=== PATIENT | female | born 1950 | race Caucasian/White ===

== ENCOUNTER 2018-06-07 03:46 | Emergency (ER) | payer OTHER ==
[2018-06-07 04:02] VITALS: BP 150/86; PULSE 98; TEMP 98.6; BMI 24.7
--- NOTE | 2018-06-07 04:32 | PDOC ---
Attending Attestation - Resident Resident Name: Terry Ramirez - ED Attending Attestation I have performed the following: I have examined & evaluated the patient, The case was reviewed & discussed with the resident, I agree w/resident's findings & plan, Exceptions are as noted - HPI HPI: 06/07/18 05:22 Ms Swanson is a 67 yo F who presents to the ER with a complaint of hematuria and dysuria Symptoms began this evening No associated fever or chills No nausea, vomiting, diarrhea She was concerned because she noted blood in the toilet bowl and also when she wiped herself after urinating No hematemesis, no rectal bleeding 06/07/18 05:23 - Physicial Exam PE: 06/07/18 05:17 Pt is awake and alert Answers all questions appropriately RRR CTA No abdominal tenderness to palpation, no pulsatile mass No CVA tenderness 06/07/18 05:33 - Medical Decision Making 06/07/18 05:34 Laboratory Tests 06/07/18 04:30 Urine Blood 3+ H Ur Leukocyte Esterase 2+ H Urine WBC (Auto) 66 Ur Epithelial Cells Rare Urine Bacteria Few Urine Mucus Rare Appears to by a UTI No flank pain to suggest pyelonpehritis or renal colic No rash No abdominal pain to suggest aortic aneurysm Pt was concerned about having appendicitis but demonstrates no RLQ tenderness Clinical Impression: UTI, initial presentation
[2018-06-07 04:39] LABS: URINE APPEARANCE CLEAR; URINE BILIRUBIN NEGATIVE (<2.0 mg/dL); URINE COLOR LTYELLOW; URINE GLUCOSE (UA) 1+ (NEGATIVE); URINE KETONE NEGATIVE (NEGATIVE); URINE NITRITE NEGATIVE (NEGATIVE); URINE UROBILINOGEN NEGATIVE mg/dL (0.2-1.0)
[2018-06-07 04:44] LABS: URINE LEUK ESTERASE 2+ (NEGATIVE); URINE PROTEIN 1+ (NEGATIVE)
[2018-06-07 04:45] LABS: EPI CELLS RARE /HPF (FEW); URINE BACTERIA FEW /hpf (NONE SEEN); URINE MUCUS RARE
--- NOTE | 2018-06-07 05:15 | PDOC ---
History of Present Illness - General Chief Complaint: Urinary Problem Stated Complaint: URINARY PROBLEM Time Seen by Provider: 06/07/18 03:59 History Source: Patient, Old Records Exam Limitations: Language Barrier (Pt is Armenian speaking only. Utilized telephone print room worker.) - History of Present Illness Initial Comments: 67 y/o female presenting to [facility] ER via ambulance from home complaining of dysuria, urgency, frequency, and hematuria since last evening. Endorses subjective fever without chills or diaphoresis. Denies nausea, vomiting, diarrhea, or constipation. No abdominal pain, flank pain, or vaginal discharge. PCP: Dr. Geo Sánchez Medical Hx: HTN DM Gastritis Surgical Hx: Total hysterectomy Cataracts Past History - Past Medical History Allergies/Adverse Reactions: Allergies Allergy/AdvReac Type Severity Reaction Status Date / Time No Known Allergies Allergy Verified 06/07/18 03:58 Home Medications: Ambulatory Orders Omeprazole 40 mg PO DAILY 06/27/13 metFORMIN HCL [Glucophage] 500 mg PO BID 06/27/13 Acetaminophen [Tylenol] 650 mg PO Q4H PRN #20 tablet 09/23/16 Albuterol Sulfate Inhaler - [Ventolin HFA Inhaler -] 1 - 2 inh PO Q4H PRN #1 inhaler 09/23/16 Azithromycin 250 mg PO DAILY #4 tablet 09/23/16 Lisinopril [Prinivil] 10 mg PO DAILY 09/23/16 Cephalexin Monohydrate [Keflex -] 500 mg PO BID #7 capsule 06/07/18 Phenazopyridine HCl [Pyridium -] 200 mg PO TID 2 Days #6 tablet 06/07/18 Anemia: Yes Cancer: Yes (UTERINE) COPD: No Diabetes: Yes HTN: Yes Hypercholesterolemia: Yes - Suicide/Smoking/Psychosocial Hx Smoking Status: No Smoking History: Never smoked Have you smoked in the past 12 months: No Information on smoking cessation initiated: No Hx Alcohol Use: No Drug/Substance Use Hx: No Substance Use Type: None Review of Systems - Review of Systems Able to Perform ROS?: Yes Is the patient limited South Korean proficient: Yes Constitutional: Yes: Fever. No: Chills, Diaphoresis Respiratory: No: Shortness of Breath Cardiac (ROS): No: Chest Pain ABD/GI: No: Constipated, Diarrhea, Nausea, Vomiting : Yes: Dysuria, Frequency, Hematuria, Pain, Urgency. No: Discharge, Flank Pain Musculoskeletal: No: Back Pain Integumentary: No: Bruising, Rash Neurological: No: Weakness Hematologic/Lymphatic: No: Easy Bleeding, Easy Bruising *Physical Exam - Vital Signs Last Vital Signs Temp Pulse Resp BP Pulse Ox 98.6 F 98 H 20 150/86 100 06/07/18 03:59 06/07/18 03:59 06/07/18 03:59 06/07/18 03:59 06/07/18 03:59 - Physical Exam Comments: Constitutional: Well-developed, well-nourished female in no acute distress but mild discomfort. Found semi-fowlers in hospital bed. Alert and oriented x4. Answered all questions appropriately and completely. Speech was non-labored, non -pressured. Armenian speaking only. HEENT: Normocephalic. No obvious external signs of trauma. Hearing grossly normal. No nasal discharge. Neck is supple, trachea is midline. Cardiovascular: Regular rate and regular rhythm. No murmur, rubs, clicks, or gallops. Peripheral pulses: Radial pulses full. Respiratory: Breathing unlabored. Equal chest rise and fall. Clear to auscultation bilaterally. No stridor, no wheezing, no rhonchi. Gastrointestinal: abdomen is soft, non-tender, non-distended. Neuro: Alert and oriented. Moving all four extremities spontaneously. Skin: Warm, dry, and intact. No bruising, rashes, or other lesions. : No R or L CVA tenderness. Psych: Affect: appropriate. Mood: normal. ED Treatment Course - ADDITIONAL ORDERS Additional order review: Laboratory Results 06/07/18 04:30 Urine Color Ltyellow Urine Appearance Clear Urine pH 5.0 Ur Specific [place] 1.003 Urine Protein 1+ H Urine Glucose (UA) 1+ H D Urine Ketones Negative Urine Blood 3+ H Urine Nitrite Negative Urine Bilirubin Negative Urine Urobilinogen Negative Ur Leukocyte Esterase 2+ H Urine WBC (Auto) 66 Urine RBC (Auto) 2 Ur Epithelial Cells Rare Urine Bacteria Few Urine Mucus Rare Medical Decision Making - Medical Decision Making *Reviewed vital signs, nursing notes, and prior visit documentation (if available). 67 y/o female complaining of dysuria, urgency, frequency, and hematuria since last evening. Denies h/o recurrent UTI. Afebrile. Triage vitals remarkable for hypertension and borderline tachycardia, pt not tachycardic on my exam. H/o hypertension. Benign physical exam. Suspect UTI versus nephrolithiasis. Low suspicion for pyelonephritis, appendicitis, diverticulitis, or obstruction. Will obtain UA and urine culture. UA revealed pyuria, leukocyte esterase, and hematuria. Suspect uncomplicated UTI. Also noted glycosuria, suspect secondary to pts DM diagnosis. Ordered first dose of Keflex and Pyridium. Discharged home with seven day course of Keflex and two day course of pyridium. Instructed to follow up with PCP. *DC/Admit/Observation/Transfer Diagnosis at time of Disposition: UTI (urinary tract infection) with pyuria - Discharge Dispostion Disposition: HOME Condition at time of disposition: Good Decision to Admit order: No - Prescriptions Prescriptions: Cephalexin Monohydrate [Keflex -] 500 mg PO BID #7 capsule Phenazopyridine HCl [Pyridium -] 200 mg PO TID 2 Days #6 tablet - Referrals Referrals: Geo Sánchez MD [Primary Care Provider] - - Patient Instructions Printed Discharge Instructions: DI for Urinary Tract Infection (UTI) Additional Instructions: Tu orina muestra signos de teresa infeccin hoy. Esta es probablemente la causa de stokes incomodidad. He enviado teresa receta para Keflex, un antibitico, y Pyridium, un medicamento para el dolor, a [facility]. [place] katie se indica en el paquete. Mary Beth un seguimiento con stokes mdico de atencin primaria dentro de los prximos 3- 4 monahan. Tendr que llamar para hacer teresa erika. El nmero est incluido en sheldon paquete. Dirjase al servicio de urgencias ms cercano si stokes afeccin empeora o si bharat que necesita teresa evaluacin de emergencia adicional. Print Language: SERBIAN - Post Discharge Activity
[2018-06-07] MEDS ORDERED: CEPHALEXIN MONOHYDRATE 500 MG CAPSULE (UD) PO ONE (05:33)
[2018-06-07] MEDS ORDERED: PHENAZOPYRIDINE HCL 100 MG TABLET (FP) PO ONE (05:33)
[2018-06-07] MEDS ORDERED: PHENAZOPYRIDINE HCL 100 MG TABLET (FP) ONE (05:38)
[2018-06-07] MEDS ORDERED: CEPHALEXIN MONOHYDRATE 500 MG CAPSULE (UD) ONE (05:38)
== END 2018-06-07 05:55 | disposition home or self-care (01) ==
LOC: JER 03:46
DX: N39.0 Urinary tract infection, site not specified (principal); R31.9 Hematuria, unspecified; I10 Essential (primary) hypertension; E11.9 Type 2 diabetes mellitus without complications; Z79.84 Long term (current) use of oral hypoglycemic drugs; E78.00 Pure hypercholesterolemia, unspecified; Z85.42 Personal history of malignant neoplasm of other parts of uterus; Z86.2 Personal history of diseases of the blood and blood-forming organs and certain disorders involving the immune mechanism
CPT/HCPCS: 81003; 81015; 87086; 87186; 99281-25

== ENCOUNTER 2019-05-11 11:58 | Emergency (ER) | payer OTHER | END 2019-05-11 13:05 | disposition home or self-care (01) | LOC: JER 11:58 → JERFT 13:05 ==

== ENCOUNTER 2019-08-19 13:03 | Emergency (ER) | payer OTHER ==
[2019-08-19 13:08] VITALS: BP 157/72; PULSE 100; TEMP 98.4; BMI 24.4
[2019-08-19] MEDS ORDERED: ACETAMINOPHEN 325 MG TABLET (FP) PO ONE (15:08)
--- NOTE | 2019-08-19 15:08 | PDOC ---
History of Present Illness - General Chief Complaint: Cold Symptoms Stated Complaint: COUGH Time Seen by Provider: 08/19/19 13:29 Past History - Travel Traveled outside of the country in the last 30 days: No Close contact w/someone who was outside of country & ill: No - Past Medical History Allergies/Adverse Reactions: Allergies Allergy/AdvReac Type Severity Reaction Status Date / Time No Known Allergies Allergy Verified 08/19/19 13:08 Home Medications: Ambulatory Orders Omeprazole 40 mg PO DAILY 06/27/13 metFORMIN HCL [Glucophage] 500 mg PO BID 06/27/13 Albuterol Sulfate Inhaler - [Ventolin HFA Inhaler -] 1 - 2 inh PO Q4H PRN #1 inhaler 09/23/16 Lisinopril [Prinivil] 10 mg PO DAILY 09/23/16 Cephalexin Monohydrate [Keflex -] 500 mg PO BID #7 capsule 06/07/18 Phenazopyridine HCl [Pyridium -] 200 mg PO TID 2 Days #6 tablet 06/07/18 Phenazopyridine HCl [Pyridium] 200 mg PO TID #6 tablet 05/11/19 Sulfamethoxazole/Trimethoprim [Bactrim Ds -] 1 tab PO BID #14 tablet 05/11/19 Albuterol Sulfate Inhaler - [Ventolin HFA Inhaler -] 1 - 2 inh PO Q4H #1 inhaler 08/19/19 predniSONE [Deltasone -] 40 mg PO DAILY #8 tablet 08/19/19 Anemia: Yes Cancer: Yes (UTERINE) COPD: No Diabetes: Yes HTN: Yes Hypercholesterolemia: Yes - Immunization History Immunization Up to Date: Yes - Psycho Social/Smoking Cessation Hx Smoking Status: No Smoking History: Never smoked Have you smoked in the past 12 months: No Hx Alcohol Use: No Drug/Substance Use Hx: No Substance Use Type: None Review of Systems - Review of Systems Able to Perform ROS?: Yes Comments:: 08/19/19 17:07 CONSTITUTIONAL: Absent: fever, chills, diaphoresis, generalized weakness, malaise, loss of appetite HEENT: Present: Rhinorrhea, nasal congestion, throat pain absent: rhinorrhea, nasal congestion, throat pain, throat swelling, difficulty swallowing, mouth swelling , ear pain, eye pain, visual Changes CARDIOVASCULAR: Absent: chest pain, loss of consciousness, palpitations, irregular heart rate, peripheral edema RESPIRATORY: Present: Cough, chest tightness. Absent: cough, shortness of breath, dyspnea with exertion, orthopnea, wheezing, stridor, hemoptysis GASTROINTESTINAL: Absent: abdominal pain, abdominal distension, nausea, vomiting, diarrhea, constipation, melena, hematochezia GENITOURINARY: Absent: dysuria, frequency, urgency, hesitancy, hematuria, flank pain, genital pain MUSCULOSKELETAL: Absent: myalgia, arthralgia, joint swelling SKIN: Absent: rash, itching, pallor NEUROLOGIC: Absent: headache, focal weakness or paresthesias, dizziness, unsteady gait, seizure, mental status changes, bladder or bowel incontinence PSYCHIATRIC: Absent: anxiety, depression, suicidal or homicidal ideation, hallucinations. Is the patient limited Czech proficient: No *Physical Exam - Vital Signs Last Vital Signs Temp Pulse Resp BP Pulse Ox 98.4 F 100 H 18 157/72 98 08/19/19 13:05 08/19/19 13:05 08/19/19 13:05 08/19/19 13:05 08/19/19 13:05 - Physical Exam Comments: 08/19/19 17:09 GENERAL: Well developed, well nourished. Awake and alert. No acute distress. HEENT: Normocephalic, atraumatic. PERRLA, EOMI. No conjunctival pallor. Sclera are non- icteric. Moist mucous membranes. Oropharynx is clear. NECK: Supple. Full ROM. No JVD. Carotid pulses 2+ and symmetric, without bruits. No thyromegaly. No lymphadenopathy. CARDIOVASCULAR: Regular rate and rhythm. No murmurs, rubs, or gallops. Distal pulses are 2+ and symmetric. PULMONARY: No evidence of respiratory distress. Lungs clear to auscultation bilaterally. No wheezing, rales or rhonchi. ABDOMINAL: Soft. Non-tender. Non-distended. No rebound or guarding. No organomegaly. Normoactive bowel sounds. MUSCULOSKELETAL Normal range of motion at all joints. No bony deformities or tenderness. No CVA tenderness. EXTREMITIES: No cyanosis. No clubbing. No edema. No calf tenderness. SKIN: Warm and dry. Normal capillary refill. No rashes. No jaundice. NEUROLOGICAL: Alert, awake, appropriate. Cranial nerves 2-12 intact. No deficits to light touch and temperature in face, upper extremities and lower extremities. No motor deficits in the in face, upper extremities and lower extremities. Normoreflexic in the upper and lower extremities. Normal speech. Toes are down- going bilaterally. Gait is normal without ataxia. PSYCHIATRIC: Cooperative. Good eye contact. Appropriate mood and affect. ED Treatment Course - LABORATORY CBC & Chemistry Diagram: 08/19/19 15:20 08/19/19 15:07 Medical Decision Making - Medical Decision Making 08/19/19 19:39 Patient is a 68-year-old female with past medical history of non-insulin- dependent diabetes, hypertension, presents to the ER today for cough and chest tightness for 1 week. She states that her chest hurts every time she coughs and she has palpitations. She also notes she has an associated sore throat worse with coughing. She is coughing up additional white sputum. He has been taking Robitussin with codeine with some relief of her symptoms. Denies fevers , chills, nausea, vomiting, urinary symptoms, earache and shortness of breath. A/P: Bronchitis On exam lungs are clear to auscultation bilaterally with no wheezes rales or rhonchi. Good aeration to the bases. Dry cough noted on exam. Given history and risk factors, basic labs, EKG and chest x-ray were obtained. EKG: Rate 95 bpm, normal sinus rhythm. No acute ST-T wave changes. Normal intervals and axis. Chest x-ray is negative for acute pathology Basic labs within normal limits. Sugar is mildly elevated at 200 Steroids given with relief of symptoms. We will treat as a bronchitis. Discharged home with steroids I discussed the physical exam findings, ancillary test results and final diagnoses with the patient. I answered all of the patient's questions. The patient was satisfied with the care received and felt comfortable with the discharge plan and treatment plan. The Patient agrees to follow up with the primary care physician/specialist within 24-72 hours. Return precautions were given. Discharge - Discharge Information Problems reviewed: Yes Clinical Impression/Diagnosis: Bronchitis Condition: Stable Disposition: HOME - Admission No - Additional Discharge Information Prescriptions: Albuterol Sulfate Inhaler - [Ventolin HFA Inhaler -] 1 - 2 inh PO Q4H #1 inhaler predniSONE [Deltasone -] 40 mg PO DAILY #8 tablet - Follow up/Referral Referrals: Geo Sánchez MD [Primary Care Provider] - - Patient Discharge Instructions Patient Printed Discharge Instructions: DI for Acute Bronchitis Additional Instructions: You have bronchitis Your EKG and chest x-ray were normal today. Your blood work was also normal. Please use the inhaler every 4 hours for the next week to help with your cough. Continue taking the prednisone daily for the next 4 days. You may take the Robitussin night before bed to help with your cough. Do not drive or drink alcohol after taking this medication as it may make you sleepy. Please follow up with your primary care doctor in 1 week if your symptoms are not improving. Return to the emergency department if you have fevers, chills, worsening cough, chest pain, worsening shortness of breath or if you have any changes in your symptoms. Tiene sinbrontis Stokes electrocardiograma y radiografa de trax fueron normales hoy. Tu anlisis de cecelia tambin fue normal. Por favor, use el inhalador cada 4 horas danny la prxima semana para ayudar con stokes tos. Contine tomando la prednisona diariamente danny los prximos 4 monahan. Usted puede priti el Robitussin noche antes de acostarse para ayudar con stokes tos. No conduzca ni layo alcohol despus de priti sheldon medicamento, ya que puede causarle sueo. Por favor, jody un seguimiento con stokes mdico de atencin primaria en 1 semana si joey sntomas no estn mejorando. Regrese al servicio de urgencias si tiene fiebre, escalofros, empeoramiento de la tos, dolor en el pecho, empeoramiento de la dificultad para respirar o si tiene algn cambio en los sntomas. Print Language: SINHALA - Post Discharge Activity
[2019-08-19] MEDS ORDERED: ACETAMINOPHEN 325 MG TABLET (FP) ONE (15:33)
[2019-08-19 15:56] LABS: BASO % 0.7 % (0-2.0); EOS % 0.8 % (0-4.5); HEMOGLOBIN 12.5 GM/dL (10.7-15.3); LYMPH % 26.6 % (8-40); MCH 33.1 pg (25.7-33.7); MCHC 33.8 g/dl (32.0-36.0); MEAN CELL VOLUME 98.1 fl (80-96); MEAN PLT VOLUME 8.4 fl (7.5-11.1); MONO % 4.9 % (3.8-10.2); PLATELET COUNT 259 K/MM3 (134-434); RBC 3.77 M/mm3 (3.60-5.2); RDW 12.8 % (11.6-15.6); WHITE BLOOD COUNT 7.5 K/mm3 (4.0-10.0)
[2019-08-19 16:25] LABS: ALBUMIN 4.1 g/dl (3.4-5.0); BILIRUBIN,TOTAL 0.2 mg/dL (0.2-1); BLOOD UREA NITROGEN 19.6 mg/dL (7-18); CALCIUM 9.6 mg/dL (8.5-10.1); CREATININE 0.9 mg/dL (0.55-1.3); POTASSIUM 4.2 mmol/L (3.5-5.1); TOT PROT 7.7 g/dl (6.4-8.2)
--- NOTE | 2019-08-20 10:35 | EKG ---
Test Reason : Blood Pressure : / mmHG Vent. Rate : 095 BPM Atrial Rate : 095 BPM P-R Int : 138 ms QRS Dur : 072 ms QT Int : 342 ms P-R-T Axes : 070 045 050 degrees QTc Int : 429 ms NORMAL SINUS RHYTHM CANNOT RULE OUT ANTERIOR INFARCT (CITED ON OR BEFORE 19-AUG-2019) ABNORMAL ECG WHEN COMPARED WITH ECG OF 28-JUN-2013 08:35, NO SIGNIFICANT CHANGE WAS FOUND Confirmed by Sebas Crowell MD ([id number]) on 08/20/2019 10:35:39 AM Referred By: Confirmed By:Sebas Crowell MD
== END 2019-08-19 17:13 | disposition home or self-care (01) ==
LOC: JERFT 13:03
DX: J40 Bronchitis, not specified as acute or chronic (principal); I10 Essential (primary) hypertension; E78.00 Pure hypercholesterolemia, unspecified; E11.9 Type 2 diabetes mellitus without complications; Z79.84 Long term (current) use of oral hypoglycemic drugs; Z86.2 Personal history of diseases of the blood and blood-forming organs and certain disorders involving the immune mechanism
CPT/HCPCS: 36415; 71046-TC-FY; 80053; 82550; 84484; 85025; 93005; 93010; 99282-25

== ENCOUNTER 2019-11-30 02:34 | Emergency (ER) | payer OTHER ==
[2019-11-30 02:48] VITALS: BMI 23.4
--- NOTE | 2019-11-30 02:50 | PDOC ---
History of Present Illness - General Stated Complaint: PAIN Time Seen by Provider: 11/30/19 02:47 - History of Present Illness Initial Comments: 11/30/19 02:49 69 yo F with h/o NIDDM, HTN, total hysterectomy, who p/w right hip pain, radiating to posterior leg. Patient accompanied by daughter at bedside who is primary career technical supervisor. Patient reports experiencing unremitting, right lower back and hip pain x 1 week. Pain radiates to posterior leg. Pain worse with ambulation. Patient ambulatory without assistive device. Denies recent trauma or fall. Denies h/o back surgery, or similar complaint. Pain not improvde with Tylenol and Icy Hot. Patient denies perianal parasthesias, flank pain, HEBERT, vision change, palpitations, cough, wheezing, orthopena, PND, leg swelling/pain, N/V, F,C, CP, SOB, urinary complaints, hematuria, BPR, abdominal pain, diarrhea, constipation, lightheadedness, weakness, sensory changes. PMHx: as noted above ROS: as noted SHx: Denies Etoh, IVDA, tobacco use Allergies: NKDA Past History - Past Medical History Allergies/Adverse Reactions: Allergies Allergy/AdvReac Type Severity Reaction Status Date / Time No Known Allergies Allergy Verified 11/30/19 02:41 Home Medications: Ambulatory Orders Lisinopril 10 mg PO DAILY 11/30/19 Metformin HCl [Glucophage] 500 mg PO BID 11/30/19 Omeprazole 20 mg PO DAILY 11/30/19 Anemia: Yes Cancer: Yes (UTERINE) COPD: No Diabetes: Yes HTN: Yes Hypercholesterolemia: Yes - Immunization History Immunization Up to Date: Yes - Psycho Social/Smoking Cessation Hx Smoking Status: No Smoking History: Never smoked Have you smoked in the past 12 months: No Information on smoking cessation initiated: No Hx Alcohol Use: No Drug/Substance Use Hx: No Substance Use Type: None Review of Systems - Review of Systems Comments:: 11/30/19 02:49 GENERAL/CONSTITUTIONAL: No fever or chills. No weakness. HEAD, EYES, EARS, NOSE AND THROAT: No change in vision. No ear pain or discharge. No sore throat. CARDIOVASCULAR: No chest pain or shortness of breath RESPIRATORY: No cough, wheezing, or hemoptysis. GASTROINTESTINAL: No nausea, vomiting, diarrhea or constipation. GENITOURINARY: No dysuria, frequency, or change in urination. MUSCULOSKELETAL:+ R hip/lower back pain. No joint or muscle swelling. No neck pain. SKIN: No rash NEUROLOGIC: No headache, vertigo, loss of consciousness, or change in strength/sensation. ENDOCRINE: No increased thirst. No abnormal weight change HEMATOLOGIC/LYMPHATIC: No anemia, easy bleeding, or history of blood clots. ALLERGIC/IMMUNOLOGIC: No hives or skin allergy. *Physical Exam - Vital Signs Last Vital Signs Temp Pulse Resp BP Pulse Ox 98.0 F 93 H 20 159/69 100 11/30/19 02:45 11/30/19 02:45 11/30/19 02:45 11/30/19 02:45 11/30/19 02:45 - Physical Exam 11/30/19 02:49 GENERAL: Awake, alert, and fully oriented, in no acute distress HEAD: No signs of trauma, normocephalic, atraumatic EYES: PERRLA, EOMI, sclera anicteric, conjunctiva clear ENT: Hearing grossly normal, nares patent, oropharynx clear without exudates. Moist mucosa NECK: Normal ROM, supple, no lymphadenopathy, JVD, or masses LUNGS: No distress, speaks full sentences, clear to auscultation bilaterally HEART: Regular rate and rhythm, normal S1 and S2, no murmurs, rubs or gallops, peripheral pulses normal and equal bilaterally. ABDOMEN: Soft, nontender, normoactive bowel sounds. No guarding, no rebound. No masses EXTREMITIES : Normal inspection, Normal range of motion, no edema. No clubbing or cyanosis. 2 + peripheral pulses throughout. R HIP: pain with active and passive right hip flexion, absent limb length discrepancy. + right posterior iliac crest and lumbar paraspinal ttp. NEUROLOGICAL: + limping right sided gait. Cranial nerves II through XII grossly intact. Normal speech, no focal sensorimotor deficits SKIN: Warm, Dry, normal turgor, no rashes or lesions noted ED Treatment Course - LABORATORY CBC & Chemistry Diagram: 11/30/19 04:43 11/30/19 04:43 Medical Decision Making - Medical Decision Making 11/30/19 03:22 69 yo F with h/o NIDDM, HTN, total hysterectomy, who p/w right hip pain, radiating to posterior leg. Vitals wnl, AF, a&Ox3. Physical exam notable for de creased right hip flexion, with absent limb length discrepancy. + R sided limping/tilted gait. Patient neurologically intact. RLE neurovascualrly intact. Absent alarm findings, or evidence of septic joint. Patient denies perianal parasthesias, flank pain, leg swelling/pain, N/V, F,C, CP, SOB, urinary complaints, hematuria, BPR, abdominal pain, diarrhea, constipation, lightheadedness, weakness, sensory changes. Denies recent fall or trauma. Will provide analgesic control and reassess. Ed Course: 11/30/19 03:28 Flexeril, Motrin, Lidoderm patch 11/30/19 07:16 HIP RAD: Unremarkable on prelim ED interpretation UA Negative Stable for d/c with return precautions Discharge - Discharge Information Problems reviewed: Yes Clinical Impression/Diagnosis: Right hip pain Condition: Stable - Admission No - Follow up/Referral Referrals: Geo Sánchez MD [Primary Care Provider] - - Patient Discharge Instructions Patient Printed Discharge Instructions: DI for Hip Pain Additional Instructions: Please return to the emergency department with any new or worsening symptoms or concerns. Please follow up with your primary care physician within 72 hours. You can take 600 mg Ibuprofen and/or Acetaminophen 650 mg every 6-8 hours as needed for pain - Post Discharge Activity
[2019-11-30] MEDS ORDERED: CYCLOBENZAPRINE HCL 5 MG TABLET PO ONE (03:21)
[2019-11-30] MEDS ORDERED: IBUPROFEN 400 MG TABLET (FP) PO ONE ×2 (03:21→03:25)
[2019-11-30] MEDS ORDERED: CYCLOBENZAPRINE HCL 10 MG TABLET (FP) ONE (03:24)
[2019-11-30] MEDS ORDERED: CYCLOBENZAPRINE HCL 10 MG TABLET (FP) PO ONE (03:27)
[2019-11-30] MEDS ORDERED: LIDOCAINE 5% TOPICAL PATCH TP ONE (04:00)
[2019-11-30] MEDS ORDERED: LIDOCAINE 5% TOPICAL PATCH ONE (04:02)
[2019-11-30 05:34] LABS: BASO % 0.4 % (0-2.0); EOS % 1.6 % (0-4.5); HEMATOCRIT 34.8 % (32.4-45.2); HEMOGLOBIN 11.8 GM/dL (10.7-15.3); LYMPH % 36.2 % (8-40); MCH 33.6 pg (25.7-33.7); MCHC 34.1 g/dl (32.0-36.0); MEAN CELL VOLUME 98.8 fl (80-96); MEAN PLT VOLUME 9.1 fl (7.5-11.1); MONO % 6.7 % (3.8-10.2); NEUT % 55.1 % (42.8-82.8); PLATELET COUNT 235 K/MM3 (134-434); RBC 3.52 M/mm3 (3.60-5.2); RDW 12.4 % (11.6-15.6); WHITE BLOOD COUNT 6.3 K/mm3 (4.0-10.0)
[2019-11-30 06:01] LABS: ALBUMIN 3.8 g/dl (3.4-5.0); BILIRUBIN,TOTAL 0.3 mg/dL (0.2-1); BLOOD UREA NITROGEN 18.1 mg/dL (7-18); CALCIUM 8.8 mg/dL (8.5-10.1); POTASSIUM 4.9 mmol/L (3.5-5.1); TOT PROT 7.2 g/dl (6.4-8.2)
[2019-11-30 06:30] LABS: ERYTHROCYTE SEDIMENTATION RATE 25 mm/hr (0-30)
--- NOTE | 2019-11-30 06:39 | PDOC ---
Attending Attestation - Resident Resident Name: Fabian Rayo - ED Attending Attestation I have performed the following: I have examined & evaluated the patient, The case was reviewed & discussed with the resident, I agree w/resident's findings & plan - HPI HPI: 12/01/19 01:13 Pt comes with right thigh and hip pain - Physicial Exam PE: 12/01/19 01:13 Pt has no rash She has no mass on the right leg or hip no bony fractures, deformities or stepoffs good pulses throughout the leg no abd pain no flank pain pt has rest of exam normal pt limps when she attempts to ambulate - Medical Decision Making 12/01/19 01:15 Pt will be signed out to the day team, as she is still in a great deal of pain, despite tratment with multiple analgesics. UA pending. Pt may require more imaging studies (CT scan) if pain doesn't improve. 12/01/19 01:16 Pt's hip and pelvis xrays are normal
[2019-11-30 06:59] LABS: URINE APPEARANCE CLEAR; URINE BILIRUBIN NEGATIVE (NEGATIVE); URINE COLOR YELLOW; URINE GLUCOSE (UA) 3+ (NEGATIVE); URINE KETONE NEGATIVE (NEGATIVE); URINE LEUK ESTERASE NEGATIVE (NEGATIVE); URINE NITRITE NEGATIVE (NEGATIVE); URINE PROTEIN TRACE (NEGATIVE); URINE UROBILINOGEN 0.2 mg/dL (0.2-1.0)
[2019-11-30 07:29] VITALS: BP 147/87; PULSE 93; TEMP 97.7
[2019-11-30] MEDS ORDERED: LIDOCAINE PATCH REMOVAL MC SCH (22:00)
== END 2019-11-30 07:29 | disposition home or self-care (01) ==
LOC: JER 02:34
DX: M25.551 Pain in right hip (principal); I10 Essential (primary) hypertension; E11.9 Type 2 diabetes mellitus without complications; Z79.84 Long term (current) use of oral hypoglycemic drugs; E78.00 Pure hypercholesterolemia, unspecified; Z90.79 Acquired absence of other genital organ(s); Z85.42 Personal history of malignant neoplasm of other parts of uterus
CPT/HCPCS: 36415; 73523-TC-FY; 80053; 81003; 85025; 85651; 99284-25

== ENCOUNTER 2023-01-06 15:03 | Emergency (ER) | payer OTHER ==
[2023-01-06 15:25] VITALS: TEMP 98.3; BMI 31.4
[2023-01-06] MEDS ORDERED: ACETAMINOPHEN 1000 MG/100 ML BAG IVPB ONE (16:10)
[2023-01-06] MEDS ORDERED: LIDOCAINE 5% TOPICAL PATCH TP ONE (16:11)
[2023-01-06] MEDS ORDERED: LIDOCAINE 5% TOPICAL PATCH ONE (16:19)
[2023-01-06] MEDS ORDERED: ACETAMINOPHEN INJECTION 100 ML IVPB ONE (16:19)
[2023-01-06] MEDS ORDERED: METHOCARBAMOL 500 MG TABLET PO ONE (16:25)
[2023-01-06 17:45] LABS: EPI CELLS 7 /uL (0-25.1); HYALINE CASTS 0 /uL (0-3.1); URINE APPEARANCE CLEAR; URINE BACTERIA 11 /uL (0-1359); URINE BILIRUBIN NEGATIVE (NEGATIVE); URINE COLOR YELLOW; URINE GLUCOSE (UA) NEGATIVE (NEGATIVE); URINE KETONE TRACE (NEGATIVE); URINE LEUK ESTERASE NEGATIVE (NEGATIVE); URINE NITRITE NEGATIVE (NEGATIVE); URINE PROTEIN 1+ (NEGATIVE); URINE RBC 2 /uL (0-23.9); URINE UROBILINOGEN 0.2 mg/dL (0.2-1.0); URINE WBC 4 /uL (0-25.8)
[2023-01-06 17:48] LABS: INR 1.1 (0.83-1.09); PROTHROMBIN TIME (PATIENT) 12.7 SEC (9.7-13.0)
[2023-01-06 17:51] LABS: ACTIVATED PTT 31.1 SECONDS (25.2-36.5)
[2023-01-06 17:58] LABS: BASO % 0.3 % (0-2.0); EOS % 1.6 % (0-4.5); HEMATOCRIT 35.5 % (32.4-45.2); LYMPH % 29.3 % (8-40); MCH 31.9 pg (25.7-33.7); MCHC 33.6 g/dl (32.0-36.0); MEAN CELL VOLUME 94.9 fl (80-96); MEAN PLT VOLUME 9.1 fl (7.5-11.1); MONO % 5.7 % (3.8-10.2); NEUT % 63.1 % (42.8-82.8); PLATELET COUNT 249 10^3/uL (134-434); RBC 3.75 M/mm3 (3.60-5.2); RDW 13.2 % (11.6-15.6); WHITE BLOOD COUNT 7.9 K/mm3 (4.0-10.0)
[2023-01-06 18:03] LABS: ALBUMIN 3.9 g/dl (3.4-5.0); CALCIUM 9.8 mg/dL (8.5-10.1)
[2023-01-06 18:07] LABS: BILIRUBIN,TOTAL 0.5 mg/dL (0.2-1); CREATININE 0.9 mg/dL (0.55-1.3)
[2023-01-06 18:08] LABS: TOT PROT 7.7 g/dl (6.4-8.2)
[2023-01-06] MEDS ORDERED: METHOCARBAMOL 500 MG TABLET ONE (18:31)
[2023-01-06 19:11] VITALS: BP 151/68; PULSE 87; RESP 14
[2023-01-06] MEDS ORDERED: LIDOCAINE PATCH REMOVAL MC ONE (22:00)
== END 2023-01-06 19:11 | disposition home or self-care (01) ==
LOC: JER 15:03
PROC: 3E033NZ Introduction of Analgesics, Hypnotics, Sedatives into Peripheral Vein, Percutaneous Approach (ICD-10-PCS; principal; 2023-01-06)
DX: U07.1 COVID-19 (principal); R10.9 Unspecified abdominal pain
CPT/HCPCS: 36415; 71046-TC-FY; 76705-TC; 80053; 81003; 83690; 84484; 85025; 85610; 85730; 87086; 93005; 93010; 99285-25; C9803-CS; U0003; U0005

== ENCOUNTER 2023-04-27 18:49 | Emergency (ER) | payer OTHER ==
[2023-04-27 18:54] VITALS: BP 171/66; PULSE 90; RESP 18; TEMP 98.5; BMI 24.2
[2023-04-27 20:29] LABS: BASO % 0.3 % (0-2.0); EOS % 0.6 % (0-4.5); HEMATOCRIT 37.1 % (32.4-45.2); HEMOGLOBIN 12.3 GM/dL (10.7-15.3); LYMPH % 30.1 % (8-40); MCH 31.7 pg (25.7-33.7); MCHC 33.2 g/dl (32.0-36.0); MEAN CELL VOLUME 95.5 fl (80-96); MEAN PLT VOLUME 9.1 fl (7.5-11.1); MONO % 5.2 % (3.8-10.2); NEUT % 63.8 % (42.8-82.8); PLATELET COUNT 281 10^3/uL (134-434); RBC 3.88 M/mm3 (3.60-5.2); RDW 13.2 % (11.6-15.6); WHITE BLOOD COUNT 9.1 K/mm3 (4.0-10.0)
[2023-04-27] MEDS ORDERED: ACETAMINOPHEN 500 MG TABLET (FP) PO ONE (20:56)
[2023-04-27] MEDS ORDERED: ACETAMINOPHEN 500 MG TABLET (FP) ONE (20:57)
[2023-04-27 21:08] LABS: EPI CELLS 7 /uL (0-25.1); HYALINE CASTS 0 /uL (0-3.1); URINE APPEARANCE CLEAR; URINE BACTERIA 2593 /uL (0-1359); URINE BILIRUBIN NEGATIVE (NEGATIVE); URINE COLOR YELLOW; URINE GLUCOSE (UA) NEGATIVE (NEGATIVE); URINE KETONE NEGATIVE (NEGATIVE); URINE LEUK ESTERASE TRACE (NEGATIVE); URINE NITRITE NEGATIVE (NEGATIVE); URINE PROTEIN 2+ (NEGATIVE); URINE RBC 11 /uL (0-23.9); URINE UROBILINOGEN 0.2 mg/dL (0.2-1.0); URINE WBC 19 /uL (0-25.8)
[2023-04-27 21:12] LABS: POTASSIUM 4.3 mmol/L (3.5-5.1)
[2023-04-27 21:15] LABS: BLOOD UREA NITROGEN 19.5 mg/dL (7-18); CALCIUM 9.1 mg/dL (8.5-10.1)
[2023-04-27 21:18] LABS: CREATININE 0.9 mg/dL (0.55-1.3)
[2023-04-27 21:20] LABS: BILIRUBIN,TOTAL 0.2 mg/dL (0.2-1); TOT PROT 7.8 g/dl (6.4-8.2)
[2023-04-27] MEDS ORDERED: NITROFURANTOIN MACROCRYSTAL 50 MG CAPSULE (FP) ONE (22:28)
[2023-04-27] MEDS ORDERED: NITROFURANTOIN MACROCRYSTAL 50 MG CAPSULE (FP) PO ONE (22:30)
== END 2023-04-27 22:31 | disposition home or self-care (01) ==
LOC: JERFT 18:49 → JER 18:49 → JERFT 22:31
PROC: 2W3CX1Z Immobilization of Right Lower Arm using Splint (ICD-10-PCS; principal; 2023-04-27)
DX: S62.101A Fracture of unspecified carpal bone, right wrist, initial encounter for closed fracture (principal); M25.531 Pain in right wrist; R42 Dizziness and giddiness; R53.1 Weakness; W07.XXXA Fall from chair, initial encounter; Y93.89 Activity, other specified; Y92.9 Unspecified place or not applicable
CPT/HCPCS: 36415; 71046-TC-FY; 71101-TC-LT-FY; 73110-TC-RT-FY; 80053; 81003; 84484; 85025; 87086; 87186; 93005; 93010; 99285-25